=== PATIENT | male | born 1985 | race Caucasian/White ===

== ENCOUNTER 2022-09-03 01:25 | Day surgery (SDC) | payer OTHER, SELFPAY ==
[2022-08-27 13:39] VITALS: BMI 28.0
--- NOTE | 2022-09-02 20:40 | P.HP_ITS ---
History of Present Illness History of Present Illness Consent: Risks, benefits, and alternatives have been discussed and questions answered. Patient agrees to proceed with procedure. Chief complaint: dysphagia, chronic cough Narrative: Jermaine Scruggs is a 37 year old male who reports having a dry nagging cough x 12 years. He reports his friends comment on his cough frequently. Reports it feels like there is something hard in his throat or his throat is blocked off . Worsens after meals . He has been coughing for 12 years but has increased over the years. First was always worse in winter. Now he coughs all day and all night. He almost never has regurgitation of stomach acid into his throat. He does not take any acid reducing medications. He does not feel food gets stuck in his chest. it is a sensation however that there is a lump in his t hroat. 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 Gender identity (if verbalized by the patient): Male Spiritual care concerns: No Agree to blood products: Yes Meds Home Medications and Allergies Home Medications Medication Instructions Recorded Confirmed Type No Home Medications 08/11/22 08/27/22 History Allergies Allergy/AdvReac Type Severity Reaction Status Date / Time No Known Allergies Allergy Unverified 09/03/22 11:29 Exam Const: General: alert Orientation/consciousness: patient oriented x3 Resp: Auscultation: clear to auscultation bilaterally Cardio: Rhythm: regular rhythm GI: GI Palp: Yes Soft to palpation and No Tenderness to palpation present (GI) Neuro: General: patient oriented x3 Assessment and Plan Assessment and plan (1) Dysphagia: Code(s): R13.10 - Dysphagia, unspecified Status: Acute Assessment and Plan: EGD with possible biopsy or dilatation or cautery.
[2022-09-03 11:29] VITALS: BP 141/78; PULSE 56; RESP 17; TEMP 36.6; O2SAT 100
[2022-09-03] MEDS: LACTATED RINGERS 1,000 ML 150 ML IV CONT (11:39)
[2022-09-03 12:56] VITALS: BP 123/78; PULSE 64; RESP 17; O2SAT 100
[2022-09-03 13:06] VITALS: BP 138/87; PULSE 64; RESP 18; O2SAT 100
[2022-09-03 13:16] VITALS: BP 136/73; PULSE 56; RESP 21; O2SAT 100
== END 2022-09-03 13:31 | disposition home or self-care (01) ==
PROVIDERS: PCP Nurse Practitioner Family; Visit Provider Internal Medicine Gastroenterology
PROC: 0DJ08ZZ Inspection of Upper Intestinal Tract, Via Natural or Artificial Opening Endoscopic (ICD-10-PCS; CPT 43235; principal; 2022-09-03 14:00)
DX: F45.8 Other somatoform disorders (principal); R05.8 Other specified cough
CPT/HCPCS: 43239; 87081; J2704; J7120